=== PATIENT | male | born 1990 | race Caucasian/White ===

== ENCOUNTER 2021-12-29 19:36 | Outpatient (CLI) | payer OTHER, SELFPAY | END 2021-12-29 19:37 | disposition home or self-care (01) | LOC: AMB 01-26 01:32 | PROVIDERS: Visit Provider Internal Medicine | DX: F29 Unspecified psychosis not due to a substance or known physiological condition (principal) | CPT/HCPCS: A0425; A0427 ==

== ENCOUNTER 2021-12-29 19:56 | Emergency (ER) | payer OTHER, SELFPAY ==
[2021-12-29] MEDS: OLANZapine 5 MG TAB.RAPDIS 10 MG PO (20:07)
[2021-12-29 20:08] VITALS: BP 138/62; PULSE 78; RESP 16; TEMP 36.2; O2SAT 98; BMI 24.4
--- NOTE | 2021-12-29 20:19 | ED_ITS ---
HPI - Altered Mental Status General Chief Complaint: Altered Mental Status <Wilfredo Ireland MD - Last Filed: 01/01/22 18:16> Stated Complaint: ETOH/Mental Health <Wilfredo Ireland MD - Last Filed: 01/01/22 18:16> Time Seen by Provider: 12/29/21 20:12 <Wilfredo Ireland MD - Last Filed: 01/01/22 18:16> History of Present Illness HPI narrative: Pt is a 31 year old with schizophrenia, marijuana, alcohol and methamphatamine use who is brought in by EMS after being found outside displaying erratic behavior. Pt really is not able to answer any of my questions speaks nonsensically. Pt received 10 mg of oral Zyprexa prior to my assessment and pt continues to do pushups and crunches in the room. No other details available as to what he has been doing. <Wilfredo Ireland MD - Last Filed: 01/01/22 18:16> Related Data Home Medications: Home Medications Medication Instructions Recorded Confirmed No Known Home Medications 12/29/21 12/29/21 <Wilfredo Ireland MD - Last Filed: 01/01/22 18:16> Allergies/Adverse Reactions: Allergies Allergy/AdvReac Type Severity Reaction Status Date / Time No Known Drug Allergies Allergy Verified 12/29/21 20:11 <Wilfredo Ireland MD - Last Filed: 01/01/22 18:16> Review of Systems Status of ROS: Reports: unobtainable due to mental status <Wilfredo Ireland MD - Last Filed: 01/01/22 18:16> [facility] Social History: Social History Smoking Status: Current every day smoker Do you use any of these nicotine containing products: None and E-Cigarettes Second hand tobacco smoke exposure: No How often do you have a drink containing alcohol: never How often do you have six or more drinks on one occasion: Never AUDIT-C Alcohol total score: 0 Non-prescribed substance use: declined to answer service: No <Wilfredo Ireland MD - Last Filed: 01/01/22 18:16> Exam Narrative: Exam Narrative: EXAM GENERAL: Patient appears manic with scleral injection bilaterally.. EYES: No scleral icterus. THYROID: no thyroid nodules or thyromegaly. LYMPH: No supraclavicular or cervical lymphadenopathy. SKIN: Visible skin seen during exam normal or with benign process only. EXT: No dependent lower extremity pedal edema. HEART: Regular rate and rhythm with no murmurs, rubs, or gallops. LUNGS: Clear to auscultation bilaterally with no crackles or wheezes. ABD: Soft, non tender, non distended. PSYCH: Pressured nonsensical speech. <Wilfredo Ireland MD - Last Filed: 01/01/22 18:16> Const: Vital Signs, click to edit/add: Vital Signs - 24 hr 12/29/21 20:08 12/30/21 02:05 12/30/21 04:42 Temperature 97.2 F L Pulse Rate [Left P ulse Oximeter] 78 78 Respiratory Rate 16 Blood Pressure [Ri ght Upper Arm] 138/62 96/62 123/58 L Pulse Oximetry 98 96 Oxygen Delivery Me thod Room Air Room Air 12/30/21 02:00 12/30/21 04:00 12/30/21 05:00 Temperature Pulse Rate [Left P ulse Oximeter] Respiratory Rate Blood Pressure [Ri ght Upper Arm] 96/62 123/58 L 96/52 L Pulse Oximetry Oxygen Delivery Me thod 12/30/21 06:30 Temperature Pulse Rate [Left P ulse Oximeter] 84 Respiratory Rate Blood Pressure [Ri ght Upper Arm] 102/63 Pulse Oximetry 93 Oxygen Delivery Me thod Room Air <Wilfredo Ireland MD - Last Filed: 01/01/22 18:16> Vital Signs, click to edit/add: Vital Signs - 24 hr 12/29/21 20:08 12/30/21 02:05 12/30/21 04:42 Temperature 97.2 F L Pulse Rate [Left P ulse Oximeter] 78 78 Respiratory Rate 16 Blood Pressure [Ri ght Upper Arm] 138/62 96/62 123/58 L Pulse Oximetry 98 96 Oxygen Delivery Me thod Room Air Room Air 12/30/21 02:00 12/30/21 04:00 12/30/21 05:00 Temperature Pulse Rate [Left P ulse Oximeter] Respiratory Rate Blood Pressure [Ri ght Upper Arm] 96/62 123/58 L 96/52 L Pulse Oximetry Oxygen Delivery Me thod 12/30/21 06:30 Temperature Pulse Rate [Left P ulse Oximeter] 84 Respiratory Rate Blood Pressure [Ri ght Upper Arm] 102/63 Pulse Oximetry 93 Oxygen Delivery Me thod Room Air <Anton Pascal MD - Last Filed: 12/30/21 09:45> Course Course Hospital Course: Pt seen and examined. Appropriate labs collected. Pt agrees to cooperate. Pt is new to this facility and we currently have no records. <Wilfredo Ireland MD - Last Filed: 01/01/22 18:16> Reevaluation(s) Reevaluation #1: Outside records reviewed. Pt apparently ran away from a treatment program. Pt has homicidal tendencies and has attempted suicide by police in the past. <Wilfredo Ireland MD - Last Filed: 01/01/22 18:16> Reevaluation #2: Pt sleeping. Pts labs positive for methamphetamine, amphetamine and THC. <Wilfredo Ireland MD - Last Filed: 01/01/22 18:16> Time: 21:49 <Wilfredo Ireland MD - Last Filed: 01/01/22 18:16> Reevaluation #3: Pt under influence of multiple street drugs as well as Zypexa. He is resting comfortably and will have mental health assessment as he becomes more lucid. <Wilfredo Ireland MD - Last Filed: 01/01/22 18:16> Time: 22:56 <Wilfredo Ireland MD - Last Filed: 01/01/22 18:16> Vital Signs Vital signs: Initial Vital Signs Temperature 97.2 F L 12/29/21 20:08 Temperature Source Temporal Artery Scan 12/29/21 20:08 Pulse Rate 78 12/29/21 20:08 Pulse Rhythm Irregularly Irregular 12/29/21 20:08 Respiratory Rate 16 12/29/21 20:08 Blood Pressure 138/62 12/29/21 20:08 Blood Pressure Mean 87 12/29/21 20:08 Blood Pressure Position Sitting 12/29/21 20:08 Pulse Oximetry 98 12/29/21 20:08 Oxygen Delivery Method 12/29/21 20:08 Vital Signs Temperature 97.2 F L 12/29/21 20:08 Pulse Rate 78 12/29/21 20:08 Respiratory Rate 16 12/29/21 20:08 Blood Pressure 138/62 12/29/21 20:08 Pulse Oximetry 98 12/29/21 20:08 Oxygen Delivery Method 12/29/21 20:08 Temperature 97.2 F L 12/29/21 20:08 Pulse Rate 84 12/30/21 06:30 Respiratory Rate 16 12/29/21 20:08 Blood Pressure 102/63 12/30/21 06:30 Pulse Oximetry 93 12/30/21 06:30 Oxygen Delivery Method 12/30/21 06:30 <Wilfredo Ireland MD - Last Filed: 01/01/22 18:16> Initial Vital Signs Temperature 97.2 F L 12/29/21 20:08 Temperature Source Temporal Artery Scan 12/29/21 20:08 Pulse Rate 78 12/29/21 20:08 Pulse Rhythm Irregularly Irregular 12/29/21 20:08 Respiratory Rate 16 12/29/21 20:08 Blood Pressure 138/62 12/29/21 20:08 Blood Pressure Mean 87 12/29/21 20:08 Blood Pressure Position Sitting 12/29/21 20:08 Pulse Oximetry 98 12/29/21 20:08 Oxygen Delivery Method 12/29/21 20:08 Vital Signs Temperature 97.2 F L 12/29/21 20:08 Pulse Rate 78 12/29/21 20:08 Respiratory Rate 16 12/29/21 20:08 Blood Pressure 138/62 12/29/21 20:08 Pulse Oximetry 98 12/29/21 20:08 Oxygen Delivery Method 12/29/21 20:08 Temperature 97.2 F L 12/29/21 20:08 Pulse Rate 84 12/30/21 06:30 Respiratory Rate 16 12/29/21 20:08 Blood Pressure 102/63 12/30/21 06:30 Pulse Oximetry 93 12/30/21 06:30 Oxygen Delivery Method 12/30/21 06:30 <Anton Pascal MD - Last Filed: 12/30/21 09:45> MDM - Altered Mental Status MDM Narrative Medical decision making narrative: The patient has been cleared by DEC. They feel he is acceptable to go home, his sensorium is cleared, he has been able to eat breakfast. He has various arrest warrants apparently and police will be contacted regarding his disposition. Addendum: The patient was cleared by DEC for release. Police were contacted and they came open evaluated the patient. They did not feel the head any legal reason to hold the patient, he was discharged. Can return as needed. Prior to discharge the paper patient was able to eat breakfast, was alert oriented, did not appear psychotic, did not appear manic. Was cooperative. Police as mention felt there was no reason to hold him and they had no legal reason to hold per them. Patient wished to leave he will be discharged to home. <Anton Pascal MD - Last Filed: 12/30/21 09:45> Lab Data Labs: Lab Results 12/29/21 12/29/21 12/29/21 Range/Units 20:46 20:46 21:15 WBC 12.54 H (4.50-11.00) K/uL RBC 4.81 (4.30-5.90) m/uL Hgb 14.5 (13.5-17.5) gm/dL Hct 42.1 (37.0-53.0) % MCV 88 (80-100) fL MCH 30 (26-34) pg MCHC 34 (32-36) gm/dL RDW Coeff of Harsh 11.7 (11.5-15.5) % Plt Count 324 (140-440) K/uL Neut % (Auto) 72.7 H (42.0-72.0) % Lymph % (Auto) 16.1 L (20-44) % Amite % (Auto) 8.9 (0.0-11.0) % Eos % (Auto) 1.9 (0.0-7.0) % Baso % (Auto) 0.2 (0.0-3.0) % Neut # (Auto) 9.10 H (1.7-7.0) K/uL Lymph # (Auto) 2.00 (0.90-2.90) K/uL Amite # (Auto) 1.10 H (0.00-0.90) K/UL Eos # (Auto) 0.20 (0.00-0.50) K/uL Baso # (Auto) 0.00 (0.00-0.30) K/uL Abs Immat Gran (auto) 0.00 (0.00-0.30) K/uL Imm/Tot Granulo (auto) 0.2 % Sodium 136 (135-149) mmol/L Potassium 3.9 (3.6-5.1) mmol/L Chloride 102 (96-114) mmol/L Carbon Dioxide 25 (20-32) mmol/L BUN 15 (5-24) mg/dL Creatinine 1.1 (0.5-1.5) mg/dL Estimated Creat Clear 97.30 Estimated GFR 92 ml/min Glucose 87 (60-115) mg/dL Calcium 9.3 (8.4-10.6) mg/dL Total Bilirubin 0.8 (0.1-1.5) mg/dL AST 32 (12-35) U/L ALT 23 (4-50) U/L Alkaline Phosphatase 66 (40-150) U/L Total Protein 7.6 (6.0-8.3) g/dL Albumin 4.7 (3.3-5.0) g/dL Salicylates < 1.0 L (1.0-10) mg/dL Urine Opiates Screen Negative (Negative) Ur Oxycodone Screen Negative (Negative) Urine Methadone Screen Negative (Negative) Ur Propoxyphene Screen Negative (Negative) Acetaminophen < 10.0 L (10.0-30.0) ug/mL Ur Barbiturates Screen Negative (Negative) U Tricyclic Antidepress Negative (Negative) Ur Phencyclidine Scrn Negative (Negative) Ur Amphetamines Screen POSITIVE A* (Negative) U Methamphetamines Scrn POSITIVE A* (Negative) U Benzodiazepines Scrn Negative (Negative) Urine Cocaine Screen Negative (Negative) U Marijuana (THC) Screen POSITIVE A* (Negative) Ur Drug Screen Comment See Note Ethyl Alcohol < 0.01 L (0.01-0.03) % <Wilfredo Ireland MD - Last Filed: 01/01/22 18:16> Lab Results 12/29/21 12/29/21 12/29/21 Range/Units 20:46 20:46 21:15 WBC 12.54 H (4.50-11.00) K/uL RBC 4.81 (4.30-5.90) m/uL Hgb 14.5 (13.5-17.5) gm/dL Hct 42.1 (37.0-53.0) % MCV 88 (80-100) fL MCH 30 (26-34) pg MCHC 34 (32-36) gm/dL RDW Coeff of Harsh 11.7 (11.5-15.5) % Plt Count 324 (140-440) K/uL Neut % (Auto) 72.7 H (42.0-72.0) % Lymph % (Auto) 16.1 L (20-44) % Amite % (Auto) 8.9 (0.0-11.0) % Eos % (Auto) 1.9 (0.0-7.0) % Baso % (Auto) 0.2 (0.0-3.0) % Neut # (Auto) 9.10 H (1.7-7.0) K/uL Lymph # (Auto) 2.00 (0.90-2.90) K/uL Amite # (Auto) 1.10 H (0.00-0.90) K/UL Eos # (Auto) 0.20 (0.00-0.50) K/uL Baso # (Auto) 0.00 (0.00-0.30) K/uL Abs Immat Gran (auto) 0.00 (0.00-0.30) K/uL Imm/Tot Granulo (auto) 0.2 % Sodium 136 (135-149) mmol/L Potassium 3.9 (3.6-5.1) mmol/L Chloride 102 (96-114) mmol/L Carbon Dioxide 25 (20-32) mmol/L BUN 15 (5-24) mg/dL Creatinine 1.1 (0.5-1.5) mg/dL Estimated Creat Clear 97.30 Estimated GFR 92 ml/min Glucose 87 (60-115) mg/dL Calcium 9.3 (8.4-10.6) mg/dL Total Bilirubin 0.8 (0.1-1.5) mg/dL AST 32 (12-35) U/L ALT 23 (4-50) U/L Alkaline Phosphatase 66 (40-150) U/L Total Protein 7.6 (6.0-8.3) g/dL Albumin 4.7 (3.3-5.0) g/dL Salicylates < 1.0 L (1.0-10) mg/dL Urine Opiates Screen Negative (Negative) Ur Oxycodone Screen Negative (Negative) Urine Methadone Screen Negative (Negative) Ur Propoxyphene Screen Negative (Negative) Acetaminophen < 10.0 L (10.0-30.0) ug/mL Ur Barbiturates Screen Negative (Negative) U Tricyclic Antidepress Negative (Negative) Ur Phencyclidine Scrn Negative (Negative) Ur Amphetamines Screen POSITIVE A* (Negative) U Methamphetamines Scrn POSITIVE A* (Negative) U Benzodiazepines Scrn Negative (Negative) Urine Cocaine Screen Negative (Negative) U Marijuana (THC) Screen POSITIVE A* (Negative) Ur Drug Screen Comment See Note Ethyl Alcohol < 0.01 L (0.01-0.03) % <Anton Pascal MD - Last Filed: 12/30/21 09:45> Discharge Plan Discharge Clinical Impression: Altered mental status <Wilfredo Ireland MD - Last Filed: 01/01/22 18:16> Patient Disposition: Home, Self-Care <Wilfredo Ireland MD - Last Filed: 01/01/22 18:16> Condition: Improved <Wilfredo Ireland MD - Last Filed: 01/01/22 18:16> Additional Instructions: Patient been cleared by DEC, will release to the police : Police evaluated the patient felt they had no reason to hold him at this point he will be discharged to home, return as needed <Wilfredo Ireland MD - Last Filed: 01/01/22 18:16> Activity Level: No Restrictions <Wilfredo Ireland MD - Last Filed: 01/01/22 18:16> No Restrictions <Anton Pascal MD - Last Filed: 12/30/21 09:45> Discharge Diet: Regular <Wilfredo Ireland MD - Last Filed: 01/01/22 18:16> Regular <Anton Pascal MD - Last Filed: 12/30/21 09:45> Prescriptions: No Action No Known Home Medications <Wilfredo Ireland MD - Last Filed: 01/01/22 18:16> Stand Alone Forms: [facility] Info Instructions <Wilfredo Ireland MD - Last Filed: 01/01/22 18:16>
[2021-12-29 20:52] LABS: Basophils Percent Auto 0.2 % (0.0-3.0); Eosinophils Percent Auto 1.9 % (0.0-7.0); Hematocrit 42.1 % (37.0-53.0); Hemoglobin* 14.5 gm/dL (13.5-17.5); Immature Granulocytes Pct Auto 0.2 %; Lymphocytes Percent Auto 16.1 % (20-44); Mean Corpuscular HGB Conc 34 gm/dL (32-36); Mean Corpuscular Hemoglobin 30 pg (26-34); Mean Corpuscular Volume 88 fL (80-100); Monocytes Percent Auto 8.9 % (0.0-11.0); Neutrophils Percent Auto 72.7 % (42.0-72.0); Platelet Count* 324 K/uL (140-440); RDW Coefficient of Variation % 11.7 % (11.5-15.5); Red Blood Count 4.81 m/uL (4.30-5.90); White Blood Count* 12.54 K/uL (4.50-11.00)
[2021-12-29 21:08] LABS: Albumin* 4.7 g/dL (3.3-5.0); Chloride* 102 mmol/L (96-114)
[2021-12-29 21:09] LABS: Potassium* 3.9 mmol/L (3.6-5.1); Sodium* 136 mmol/L (135-149)
[2021-12-29 21:11] LABS: Alkaline Phosphatase* 66 U/L (40-150); Aspartate Amino Transferase* 32 U/L (12-35); Bilirubin Total* 0.8 mg/dL (0.1-1.5); Blood Urea Nitrogen* 15 mg/dL (5-24); Carbon Dioxide* 25 mmol/L (20-32); Creatinine* 1.1 mg/dL (0.5-1.5); Estimated Glomerular Filt Rate 92 ml/min; Total Protein* 7.6 g/dL (6.0-8.3)
[2021-12-29 21:12] LABS: Alanine Aminotransferase* 23 U/L (4-50); Calcium* 9.3 mg/dL (8.4-10.6); Glucose* 87 mg/dL (60-115)
[2021-12-29 21:13] LABS: Acetaminophen* < 10.0 ug/mL (10.0-30.0); Ethanol* < 0.01 % (0.01-0.03); Salicylate* < 1.0 mg/dL (1.0-10); Slide Review Reflex No
[2021-12-29 21:27] LABS: Barbiturate Screen Urine Negative (Negative); Benzodiazepines Screen Urine Negative (Negative); Cocaine Screen Urine Negative (Negative); Methadone Screen Urine Negative (Negative); Opiate Screen Urine Negative (Negative); Oxycodone Screen Urine Negative (Negative); Phencyclidine Screen Urine Negative (Negative); Tricyclic Antidepressant Urine Negative (Negative)
[2021-12-29 21:38] LABS: Amphetamine Screen Urine POSITIVE (Negative)
[2021-12-29 21:39] LABS: Cannabinoid Screen Urine POSITIVE (Negative); Methamphetamines Screen Urine POSITIVE (Negative)
--- NOTE | 2021-12-29 22:38 | ED.NURSE ---
Patient sleeping on cot in room. Patient rouses easily to voice. Patient requesting lights dimmed and tv turned off.
[2021-12-30 02:00] VITALS: BP 96/62
[2021-12-30 02:05] VITALS: BP 96/62; PULSE 78; O2SAT 96
[2021-12-30 04:00] VITALS: BP 123/58
[2021-12-30 04:42] VITALS: BP 123/58
[2021-12-30 05:00] VITALS: BP 96/52
[2021-12-30 06:30] VITALS: BP 102/63; PULSE 84; O2SAT 93
--- NOTE | 2021-12-30 09:35 | PC.NURSE ---
cleared by DEC, pt discharged at this time, left ER ambulatory with belongings, call placed to [facility] and according to their records pt is not on a commitment in state of [place] and can be released, pt offered phone and for us to make calls for him and declined, pt left at this time on foot, asking about a backpack but not found in his belongings, pt aware of this
== END 2021-12-30 09:35 | disposition home or self-care (01) ==
PROVIDERS: Emergency Provider Internal Medicine
DX: R41.82 Altered mental status, unspecified (principal)
CPT/HCPCS: 36415; 80053; 80143; 80179; 80306; 82077; 85025; 99283; A9270